=== PATIENT | female | born 1985 | race Caucasian/White ===

== ENCOUNTER 2016-10-27 14:02 | Inpatient (IN) | payer OTHER ==
[2016-10-27 14:19] VITALS: BMI 24.7
--- NOTE | 2016-10-27 15:18 | HP ---
COWS - Scale Resting Pulse: 1= ID [id number] Sweatin=Flushed/Facial Moisture Restless Observation: 1= Difficult to Sit Still Pupil Size: 0= Normal to Room Light Bone or Joint Aches: 2= Severe Diffuse Aches Runny Nose/ Eye Tearin= Runny Nose/Eyes GI Upset > 30mins: 2= Nausea/Diarrhea Tremor Observation: 2= Slight Tremor Visible Yawning Observation: 1= 1-2x During Session Anxiety or Irritability: 2=Irritable/Anxious Goose Flesh Skin: 3=Piloerection COWS Score: 18 Admission ROS S - HPI Chief Complaint: "I want to get off drugs because of my family and because I cannot keep doing this." Pt. is here to Detox from Heroin. Allergies/Adverse Reactions: Allergies Allergy/AdvReac Type Severity Reaction Status Date / Time No Known Allergies Allergy Verified 10/27/16 14:54 History of Present Illness: Pt. is a 31 YO female here to Detox from Percocet and Oxycodone. Patient initially prescribed Tramadol by MD for back pain presumably caused by Gastric Sleeve placement for weight loss in 2015. However, patient found the Tramadol to be relatively ineffective and began purchasing Percocet and Oxycodone from the street. Prio to this admission, she reports that she was taking 100 - 150 mg of Oxycodone per week. This is pt.'s first detox admission. Exam Limitations: No Limitations - Ebola screening Have you traveled outside of the country in the last 21 days: No Have you had contact with anyone from an Ebola affected area: No Have you been sick,other than usual withdrawal symptoms: No Do you have a fever: No - Review of Systems Constitutional: Chills, Diaphoresis, Fever, Loss of Appetite, Malaise, Night Sweats, Changes in sleep, Unintentional Wgt. Loss (Lost approx. 20 lbs over the last 1 month.) EENT: reports: Tearing, Nose Congestion, Sinus Pressure Respiratory: reports: Shortness of Breath (Occasional.) Cardiac: reports: Palpitations GI: reports: Diarrhea, Nausea, Poor Appetite, Vomiting : reports: No Symptoms Reported Musculoskeletal: reports: Back Pain, Joint Pain, Joint Stiffness Integumentary: reports: No Symptoms Reported Neuro: reports: Headache (Occasional.), Tingling (Bilateral legs.), Tremors Endocrine: reports: No Symptoms Reported Hematology: reports: No Symptoms Reported Psychiatric: reports: No Sypmtoms Reported, Judgement Intact, Mood/Affect Appropiate, Orientated x3, Anxious, Depressed (No previous medication / treatment.) Other Systems: Reviewed and Negative Patient History - Patient Medical History Hx Anemia: No Hx Asthma: No Hx Chronic Obstructive Pulmonary Disease (COPD): No Hx Cancer: No Hx Cardiac Disorders: No Hx Congestive Heart Failure: No Hx Hypertension: No Hx Hypercholesterolemia: No Hx Pacemaker: No HX Cerebrovascular Accident: No Hx Seizures: No Hx Dementia: No Hx Diabetes: No Hx Gastrointestinal Disorders: No Hx Liver Disease: No Hx Genitourinary Disorders: No Hx Sexually Transmitted Disorders: No Hx Renal Disease (ESRD): No Hx Thyroid Disease: No Hx Human Immunodeficiency Virus (HIV): No (Last Tested approx. 1 year ago: NEGATIVE.) Hx Hepatitis C: No (Does not recall if she has ever been tested.) Hx Depression: No (No treatment.) Hx Suicide Attempt: No (PATIENT DENEIS CURRENT SI / HI.) Hx Bipolar Disorder: No Hx Schizophrenia: No Other Medical History: DENIES. - Patient Surgical History Past Surgical History: Yes Hx Neurologic Surgery: No Hx Cataract Extraction: No Hx Cardiac Surgery: No Hx Lung Surgery: No Hx Breast Surgery: No Hx Breast Biopsy: No Hx Abdominal Surgery: Yes (gastric sleeve in 2014) Hx Appendectomy: No Hx Cholecystectomy: Yes (in 2011) Hx Genitourinary Surgery: No Hx Section: No Hx Orthopedic Surgery: No Hx Hysterectomy: No Other Surgical History: DENIES. Anesthesia Reaction: No - PPD History Previous Implant?: Yes Documented Results: Positive w/o proof Implanted On Prior R Admission?: No PPD to be Administered?: No - Reproductive History Patient is a Female of Child Bearing Age (11 -55 yrs old): Yes Last Menstrual Period: 09/26/16 Patient : No - Smoking Cessation Smoking history: Former smoker Have you smoked in the past 12 months: Yes Aproximately how many cigarettes per day: 1 Cigars Per Day: 0 Hx Chewing Tobacco Use: No Initiated information on smoking cessation: Yes 'Breaking Loose' booklet given: 10/27/16 - Substance & Tx. History Hx Alcohol Use: No Hx Substance Use: Yes Substance Use Type: Opiates Hx Substance Use Treatment: No - Substances Abused Percocet Route: Oral Frequency: Daily Amount used: 100-150 mg. Age of first use: 30 Date of Last Use: 10/26/16 Family Disease History - Family Disease History Family Disease History: [place]: Mother (Bone Marrow, .) Admission Physical Exam [facility] - Vital Signs Vital Signs: Vital Signs - 24 hr 10/27/16 14:12 Temperature 97.8 F Pulse Rate 93 H Respiratory 20 Rate Blood Pressure 147/82 - Physical General Appearance: Yes: Nourished, Appropriately Dressed, Moderate Distress, Tremorous, Sweating, Anxious HEENTM: Yes: Hearing grossly Normal, Normocephalic, Normal Voice, ERIKA, Pharynx Normal Respiratory: Yes: Chest Non-Tender, Lungs Clear, No Respiratory Distress, No Accessory Muscle Use Neck: Yes: No masses,lesions,Nodules, Supple, Trachea in good position Breast: Yes: Breast Exam Deferred Cardiology: Yes: Regular Rhythm, Regular Rate, S1, S2 Abdominal: Yes: Normal Bowel Sounds, Non Tender, Flat, Soft Genitourinary: Yes: Within Normal Limits Back: Yes: Decreased Range of Motion Musculoskeletal: Yes: Gait Steady, Back pain, Joint Stiffness Extremities: Yes: Normal Capillary Refill, Tremors Neurological: Yes: Fully Oriented, Alert, Normal Mood/Affect, Normal Response Integumentary: Yes: Normal Color, Warm, Diaphoresis Lymphatic: Yes: Within Normal Limits - Diagnostic (1) Opioid dependence with withdrawal Current Visit: Yes Status: Acute (2) Nicotine dependence Current Visit: Yes Status: Chronic Qualifiers: Nicotine product type: cigarettes Substance use status: uncomplicated Qualified Code(s): F17.210 - Nicotine dependence, cigarettes, uncomplicated (3) Depression (emotion) Current Visit: Yes Status: Chronic Qualifiers: Depression Type: unspecified Qualified Code(s): F32.9 - Major depressive disorder, single episode, unspecified (4) Hx of laparoscopic gastric banding Current Visit: Yes Status: Chronic (5) Back pain Current Visit: Yes Status: Chronic Qualifiers: Back pain location: low back pain Chronicity: chronic Back pain laterality: bilateral Sciatica presence: without sciatica Qualified Code(s): M54.5 - Low back pain; G89.29 - Other chronic pain Cleared for Admission [facility] - Detox or Rehab [facility] Level of Care: Medically Managed Detox Regimen/Protocol: Methadone BHS Breath Alcohol Content Breath Alcohol Content: 0 Urine Pregancy Test - Result Urine Test Results: Negative- NO Line Present Urine Drug Screen - Results Drug Screen Negative: No Urine Drug Screen Results: TCA-Tricyclic Antidepress, OXY-Oxycodone
[2016-10-27] MEDS ORDERED: METHADONE HCL 10 MG TABLET (FOR DETOX USE ONLY) PO ONE ×2 (15:53→23:00)
[2016-10-27] MEDS ORDERED: MAG HYDROX/AL HYDROX/SIMETH 30 ML UNIT-DOSE CUP PO PRN (15:53)
[2016-10-27] MEDS ORDERED: LOPERAMIDE HCL 2 MG CAPSULE PO PRN (15:53)
[2016-10-27] MEDS ORDERED: MAGNESIUM CITRATE 300 ML BOTTLE PO PRN (15:53)
[2016-10-27] MEDS ORDERED: P-EPHED 60MG/TRIPROLIDI 2.5MG TABLET PO PRN (15:53)
[2016-10-27] MEDS ORDERED: MENTHOL/PHENOL 1 EACH UD MM PRN (15:53)
[2016-10-27] MEDS ORDERED: ACETAMINOPHEN 325 MG TABLET (FP) PO PRN (15:53)
[2016-10-27] MEDS ORDERED: MAGNESIUM HYDROX 2400MG/30ML ORAL SUSPENSION 30 ML CUP PO PRN (15:53)
[2016-10-27] MEDS ORDERED: guaiFENesin/D-METHORPHAN HB 10 ML UNIT-DOSE CUPS PO PRN (15:53)
[2016-10-27] MEDS: diazePAM 5 MG TABLET PO PRN (17:36)
[2016-10-27] MEDS: THIAMINE HCL 100 MG TABLET (FP) PO SCH (22:21)
[2016-10-27 22:22] LABS: URINE APPEARANCE CLEAR; URINE BILIRUBIN NEGATIVE (NEGATIVE); URINE BLOOD NEGATIVE (NEGATIVE); URINE COLOR YELLOW; URINE GLUCOSE (UA) NEGATIVE (NEGATIVE); URINE KETONE 1+ (NEGATIVE); URINE LEUK ESTERASE NEGATIVE (NEGATIVE); URINE NITRITE NEGATIVE (NEGATIVE); URINE PROTEIN NEGATIVE (NEGATIVE); URINE UROBILINOGEN NEGATIVE mg/dL (0.2-1.0)
[2016-10-27] MEDS: diphenhydrAMINE HCL 50 MG CAPSULE PO PRN (23:15)
[2016-10-28] MEDS: diphenhydrAMINE HCL 50 MG CAPSULE PO PRN (00:27)
[2016-10-28] MEDS: diazePAM 5 MG TABLET PO PRN ×5 (00:27→20:54)
--- NOTE | 2016-10-28 08:55 | CONSULT ---
[facility] Psychiatric Consult - Data Date of interview: 10/28/16 Admission source: [facility] Identifying data: Comso is 31 years opld female with no psychiatric hospitalization history iontoxicated with Opioids an Nicotine Substance Abuse History: - Smoking Cessation. Smoking history: Former smoker. Have you smoked in the past 12 months: Yes. Aproximately how many cigarettes per day: 1. Cigars Per Day: 0. Hx Chewing Tobacco Use: No. Initiated information on smoking cessation: Yes. 'Breaking Loose' booklet given: . - Substance & Tx. History. Hx Alcohol Use: No. Hx Substance Use: Yes. Substance Use Type: Opiates. Hx Substance Use Treatment: No. - Substances Abused. Percocet. Route: Oral. Frequency: Daily. Amount used: 100-150 mg. Age of first use: 30. Date of Last Use: 10/26/16 Medical History: LBP, Gastric Bypass m history on 2014 , lost 120 LBS, Psychiatric History: Patient reports history of depression and anxiety, insomnia , reprots good response on Trazodone 50mg po qhs Physical/Sexual Abuse/Trauma History: Denies Additional Comment: Trazodone 50mg po qhs Mental Status Exam - Mental Status Exam Alert and Oriented to: Person Cognitive Function: Fair Patient Appearance: Unkempt Mood: Sad Affect: Mood Congruent Patient Behavior: Cooperative Speech Pattern: Delayed Voice Loudness: Mildly Soft/Quiet Thought Process: Goal Oriented Thought Disorder: Being Controlled Hallucinations: Denies Suicidal Ideation: Denies Homicidal Ideation: Denies Insight/Judgement: Fair Sleep: Difficulty falling asleep Appetite: Weight gain Muscle strength/Tone: Mild Hypotonicity Gait/Station: Normal Additional Comments: Trazodone 50mg po qhs Psychiatric Findings - Problem List ([place] 1, 2,3) (1) Opioid dependence with withdrawal Current Visit: Yes Status: Acute (2) Nicotine dependence Current Visit: Yes Status: Chronic Qualifiers: Nicotine product type: cigarettes Substance use status: uncomplicated Qualified Code(s): F17.210 - Nicotine dependence, cigarettes, uncomplicated (3) Drug-induced mood disorder Current Visit: Yes Status: Acute - Initial Treatment Plan Initial Treatment Plan: Trazodone 50mg po qhs
[2016-10-28 09:56] LABS: MCHC 32.8 g/dl (32.0-36.0); MEAN CELL VOLUME 82.3 fl (80-96); MEAN PLT VOLUME 9.7 fl (7.5-11.1); PLATELET COUNT 214 K/MM3 (134-434); RDW 15.7 % (11.6-15.6); WHITE BLOOD COUNT 6.7 K/mm3 (4.0-10.0)
[2016-10-28] MEDS ORDERED: METHADONE HCL 10 MG TABLET (FOR DETOX USE ONLY) PO ONE (10:00)
[2016-10-28] MEDS: PRENATAL VITAMINS W/ FOLIC ACID TABLET (FP) PO SCH (10:34)
--- NOTE | 2016-10-28 10:35 | PN ---
BHS COWS - Scale Resting Pulse: 1= [place] 81-100 Sweatin=Flushed/Facial Moisture Restless Observation: 1= Difficult to Sit Still Pupil Size: 0= Normal to Room Light Bone or Joint Aches: 2= Severe Diffuse Aches Runny Nose/ Eye Tearin= None GI Upset > 30mins: 2= Nausea/Diarrhea Tremor Observation of Outstretched Hands: 2= Slight Tremor Visible Yawning Observation: 2= >3x During Session Anxiety or Irritability: 2=Irritable/Anxious Goose Flesh Skin: 3=Piloerection COWS Score: 17 BHS Progress Note (SOAP) Subjective: shakes sweats interrupted sleep body aches Objective: 10/28/16 10:44 Vital Signs Temperature 98.1 F 10/28/16 10:39 Pulse Rate 97 H 10/28/16 10:39 Respiratory Rate 18 10/28/16 10:39 Blood Pressure 117/68 10/28/16 10:39 O2 Sat by Pulse Oximetry (%) Laboratory Tests 10/27/16 10/28/16 10/28/16 21:57 07:00 07:00 WBC 6.7 RBC 4.01 Hgb 10.8 Hct 33.0 MCV 82.3 MCH 27.0 MCHC 32.8 RDW 15.7 H Plt Count 214 MPV 9.7 Urine Color Yellow Urine Appearance Clear Urine pH 6.0 Ur Specific [place] 1.010 Urine Protein Negative Urine Glucose (UA) Negative Urine Ketones 1+ H Urine Blood Negative Urine Nitrite Negative Urine Bilirubin Negative Urine Urobilinogen Negative Ur Leukocyte Esterase Negative RPR Titer Nonreactive labs pending awake/alert ambulating no acute distress Assessment: 10/28/16 10:44 withdrawal sx Plan: continue detox increase fluids labs pending
--- NOTE | 2016-10-28 10:46 | EKG ---
Test Reason : Blood Pressure : / mmHG Vent. Rate : 087 BPM Atrial Rate : 087 BPM P-R Int : 128 ms QRS Dur : 074 ms QT Int : 360 ms P-R-T Axes : 054 042 061 degrees QTc Int : 433 ms NORMAL SINUS RHYTHM WITH SINUS ARRHYTHMIA NORMAL ECG NO PREVIOUS ECGS AVAILABLE Confirmed by JOANN DE LA TORRE, YOSVANY ([id number]) on 10/28/2016 10:45:43 AM Referred By: Luis Aguillon Confirmed By:YOSVANY DAVID MD
[2016-10-28 10:56] LABS: ALBUMIN 3.6 g/dl (3.4-5.0); ALK PHOS 50 U/L (45-117); ANION GAP 9 (8-16); BILIRUBIN,TOTAL 0.7 mg/dL (0.2-1.0); CALCIUM 8.9 mg/dL (8.5-10.1); CO2 27 mmol/L (21-32); CREATININE 0.6 mg/dL (0.55-1.02); GLUCOSE,RANDOM 110 mg/dL (74-106); SGOT/AST 6 U/L (15-37); SGPT/ALT 18 U/L (12-78); TOT PROT 6.2 g/dl (6.4-8.2)
[2016-10-28] MEDS: NICOTINE POLACRILEX 2 MG GUM BC PRN ×2 (12:07→20:55)
[2016-10-28 14:38] LABS: SICKLE CELL SCREEN NEGATIVE (NEGATIVE)
[2016-10-28] MEDS: THIAMINE HCL 100 MG TABLET (FP) PO SCH (22:22)
[2016-10-28] MEDS: traZODone HCL 50 MG TABLET (FP) PO SCH (22:22)
[2016-10-28] MEDS: CYCLOBENZAPRINE HCL 10 MG TABLET (FP) PO PRN (22:22)
[2016-10-29] MEDS: IBUPROFEN 400 MG TABLET (FP) PO PRN ×2 (03:04→14:04)
[2016-10-29] MEDS: diazePAM 5 MG TABLET PO PRN ×4 (03:05→22:22)
[2016-10-29] MEDS: CYCLOBENZAPRINE HCL 10 MG TABLET (FP) PO PRN (07:00)
--- NOTE | 2016-10-29 09:39 | PN ---
Psychiatric Progress Note Vital Signs: Vital Signs Period Temp Pulse Resp BP Sys/Larson Pulse Ox Last 24 Hr 96.6 F-98.2 F 68-105 18-108 92-121/50-73 Date of Session: 10/29/16 Chief Complaint:: Depression HPI: Patient approached MD at the [facility] and expressed desire to restart Lexapro 10mg po qd she angelina been takinf in nthe past with good response Current Medications: Active Medications Generic Name Dose Route Start Last Admin Trade Name Freq PRN Reason Stop Dose Admin Acetaminophen 650 mg 10/27/16 15:53 Tylenol - PO Q4H PRN FEVER OR PAIN Al Hydroxide/Mg Hydroxide 30 ml 10/27/16 15:53 Mylanta Oral Suspension - PO Q6H PRN DYSPEPSIA Cyclobenzaprine HCl 10 mg 10/27/16 15:57 10/29/16 07:00 Flexeril - PO 10 mg TID PRN Administration MUSCLE SPASMS Diazepam 10 mg 10/27/16 15:53 10/29/16 07:00 Valium - PO 10/30/16 15:52 10 mg Q4H PRN Administration WITHDRAWAL(CONT SUBST) Diphenhydramine HCl 50 mg 10/27/16 15:53 10/28/16 00:27 Benadryl - PO 50 mg HSMR1 PRN Administration INSOMNIA Escitalopram Oxalate 10 mg 10/29/16 10:00 Lexapro - PO DAILY LULA Eucalyptus/Menthol/Phenol/Sorbitol 1 each 10/27/16 15:53 Cepastat Lozenge - MM Q4H PRN SORE THROAT Guaifenesin 10 ml 10/27/16 15:53 Robitussin Dm - PO Q6H PRN COUGH Hydroxyzine Pamoate 50 mg 10/27/16 15:53 Vistaril - PO Q4H PRN AGITATION Ibuprofen 400 mg 10/27/16 15:53 10/29/16 03:04 Motrin - PO 400 mg Q6H PRN Administration SEVERE PAIN Loperamide HCl 4 mg 10/27/16 15:53 Imodium - PO Q6H PRN DIARRHEA Magnesium Citrate 300 ml 10/27/16 15:53 Citroma - PO Q48H PRN CONSTIPATION Magnesium Hydroxide 30 ml 10/27/16 15:53 Milk Of Magnesia - PO DAILY PRN CONSTIPATION Methadone HCl 10 mg 10/31/16 10:00 Dolophine - PO 10/31/16 10:01 ONCE ONE Methadone HCl 15 mg 10/29/16 10:00 Dolophine - PO 10/29/16 10:01 ONCE ONE Methadone HCl 15 mg 10/30/16 10:00 Dolophine - PO 10/30/16 10:01 ONCE ONE Methadone HCl 5 mg 11/01/16 06:00 Dolophine - PO 11/01/16 06:01 ONCE@0600 ONE Nicotine Polacrilex 2 mg 10/27/16 15:53 10/28/16 20:55 Nicorette Gum - BC 2 mg Q2H PRN Administration NICOTINE REPLACEMENT RX Multivit/Folic Acid/Iron 1 tab 10/28/16 10:00 10/28/16 10:34 Vitamins (Sjr) - PO 1 tab DAILY LULA Administration Pseudoephedrine/Triprolidine 1 combo 10/27/16 15:53 Actifed - PO TID PRN NASAL CONGESTION Thiamine HCl 100 mg 10/27/16 22:00 10/28/16 22:22 Vitamin B1 - PO 100 mg HS LULA Administration Trazodone HCl 50 mg 10/28/16 22:00 10/28/16 22:22 Desyrel - PO 50 mg HS LULA Administration Medication(s) Change(s): Lexapro 10mg po qd Mental Status Exam - Mental Status Exam Alert and Oriented to: Place, Person Cognitive Function: Fair Patient Appearance: Unkempt Mood: Anxious Affect: Mood Congruent Patient Behavior: Cooperative Speech Pattern: Delayed Voice Loudness: Mildly Soft/Quiet Thought Process: Goal Oriented Thought Disorder: Being Controlled Hallucinations: Denies Suicidal Ideation: Denies Homicidal Ideation: Denies Insight/Judgement: Fair Sleep: Difficulty falling asleep Appetite: Weight gain Muscle strength/Tone: Normal Gait/Station: Normal Additional Comments: Lexapro 10mg po qd Psychiatric Treatment Plan - Problem List (1) Opioid dependence with withdrawal Current Visit: Yes (2) Nicotine dependence Current Visit: Yes Qualifiers: Nicotine product type: cigarettes Substance use status: uncomplicated Qualified Code(s): F17.210 - Nicotine dependence, cigarettes, uncomplicated (3) Drug-induced mood disorder Current Visit: Yes Initial treatment plan: Lexapro 10mg po qd
[2016-10-29] MEDS ORDERED: METHADONE HCL 5 MG TABLET (FOR DETOX USE ONLY) PO ONE (10:00)
[2016-10-29] MEDS: ESCITALOPRAM OXALATE 10 MG TABLET (FP) PO SCH (10:43)
[2016-10-29] MEDS: PRENATAL VITAMINS W/ FOLIC ACID TABLET (FP) PO SCH (10:43)
[2016-10-29] MEDS: NICOTINE POLACRILEX 2 MG GUM BC PRN ×2 (11:21→17:45)
--- NOTE | 2016-10-29 12:35 | PN ---
S COWS - Scale Resting Pulse: 2= [place] 101-120 Sweatin= Chills/Flushing Restless Observation: 1= Difficult to Sit Still Pupil Size: 1= Pupils >than Normal Bone or Joint Aches: 1= Mild Discomfort Runny Nose/ Eye Tearin= Nasal Congestion GI Upset > 30mins: 2= Nausea/Diarrhea Tremor Observation of Outstretched Hands: 1= Tremor [place], Not Seen Yawning Observation: 1= 1-2x During Session Anxiety or Irritability: 2=Irritable/Anxious Goose Flesh Skin: 3=Piloerection COWS Score: 16 S Progress Note (SOAP) Subjective: nausea, sweats, interrupted sleep, anxiety, tremors Objective: 10/29/16 12:34 Vital Signs - 24 hr 10/28/16 10/28/16 10/28/16 14:55 17:50 22:19 Temperature 98.2 F 97.2 F L 96.6 F L Pulse Rate 93 H 105 H 91 H Respiratory 108 H 18 18 Rate Blood Pressure 108/72 121/69 117/73 10/29/16 10/29/16 10/29/16 00:30 03:30 06:52 Temperature 96.8 F L Pulse Rate 68 Respiratory 18 18 18 Rate Blood Pressure 92/50 10/29/16 10:24 Temperature 97.9 F Pulse Rate 106 H Respiratory 18 Rate Blood Pressure 108/60 Laboratory Tests 10/27/16 10/27/16 10/28/16 07:00 21:57 07:00 WBC RBC Hgb Hct MCV MCH MCHC RDW Plt Count MPV Sickle Cell Screen Sodium 142 Potassium 4.1 Chloride 106 Carbon Dioxide 27 Anion Gap 9 BUN 14 Creatinine 0.6 Creat Clearance w eGFR > 60 Random Glucose 110 H Calcium 8.9 Total Bilirubin 0.7 AST 6 L ALT 18 Alkaline Phosphatase 50 Total Protein 6.2 L Albumin 3.6 Urine Color Yellow Urine Appearance Clear Urine pH 6.0 Ur Specific [place] 1.010 Urine Protein Negative Urine Glucose (UA) Negative Urine Ketones 1+ H Urine Blood Negative Urine Nitrite Negative Urine Bilirubin Negative Urine Urobilinogen Negative Ur Leukocyte Esterase Negative RPR Titer Hepatitis C Antibody <0.1 10/28/16 10/28/16 07:00 07:00 WBC 6.7 RBC 4.01 Hgb 10.8 Hct 33.0 MCV 82.3 MCH 27.0 MCHC 32.8 RDW 15.7 H Plt Count 214 MPV 9.7 Sickle Cell Screen Negative Sodium Potassium Chloride Carbon Dioxide Anion Gap BUN Creatinine Creat Clearance w eGFR Random Glucose Calcium Total Bilirubin AST ALT Alkaline Phosphatase Total Protein Albumin Urine Color Urine Appearance Urine pH Ur Specific [place] Urine Protein Urine Glucose (UA) Urine Ketones Urine Blood Urine Nitrite Urine Bilirubin Urine Urobilinogen Ur Leukocyte Esterase RPR Titer Nonreactive Hepatitis C Antibody Assessment: 10/29/16 12:35 withdrawal sx Plan: cont detox
[2016-10-29] MEDS: THIAMINE HCL 100 MG TABLET (FP) PO SCH (22:19)
[2016-10-29] MEDS: traZODone HCL 50 MG TABLET (FP) PO SCH (22:19)
[2016-10-30] MEDS: diazePAM 5 MG TABLET PO PRN ×2 (05:39→10:54)
[2016-10-30] MEDS: IBUPROFEN 400 MG TABLET (FP) PO PRN (08:54)
[2016-10-30] MEDS: CYCLOBENZAPRINE HCL 10 MG TABLET (FP) PO PRN (08:55)
--- NOTE | 2016-10-30 09:59 | PN ---
BHS Progress Note (SOAP) Subjective: nausea, sweats, interrupetd sleep, anxiety, tremors Objective: 10/30/16 09:58 Vital Signs - 8 hr 10/30/16 10/30/16 03:30 06:57 Temperature 97.7 F Pulse Rate 85 Respiratory 18 18 Rate Blood Pressure 102/68 Laboratory Tests 10/27/16 10/27/16 10/28/16 07:00 21:57 07:00 WBC RBC Hgb Hct MCV MCH MCHC RDW Plt Count MPV Sickle Cell Screen Sodium 142 Potassium 4.1 Chloride 106 Carbon Dioxide 27 Anion Gap 9 BUN 14 Creatinine 0.6 Creat Clearance w eGFR > 60 Random Glucose 110 H Calcium 8.9 Total Bilirubin 0.7 AST 6 L ALT 18 Alkaline Phosphatase 50 Total Protein 6.2 L Albumin 3.6 Urine Color Yellow Urine Appearance Clear Urine pH 6.0 Ur Specific [place] 1.010 Urine Protein Negative Urine Glucose (UA) Negative Urine Ketones 1+ H Urine Blood Negative Urine Nitrite Negative Urine Bilirubin Negative Urine Urobilinogen Negative Ur Leukocyte Esterase Negative RPR Titer Hepatitis C Antibody <0.1 10/28/16 10/28/16 07:00 07:00 WBC 6.7 RBC 4.01 Hgb 10.8 Hct 33.0 MCV 82.3 MCH 27.0 MCHC 32.8 RDW 15.7 H Plt Count 214 MPV 9.7 Sickle Cell Screen Negative Sodium Potassium Chloride Carbon Dioxide Anion Gap BUN Creatinine Creat Clearance w eGFR Random Glucose Calcium Total Bilirubin AST ALT Alkaline Phosphatase Total Protein Albumin Urine Color Urine Appearance Urine pH Ur Specific [place] Urine Protein Urine Glucose (UA) Urine Ketones Urine Blood Urine Nitrite Urine Bilirubin Urine Urobilinogen Ur Leukocyte Esterase RPR Titer Nonreactive Hepatitis C Antibody Assessment: 10/30/16 09:59 withdrawal sx Plan: cont detox
[2016-10-30] MEDS ORDERED: METHADONE HCL 5 MG TABLET (FOR DETOX USE ONLY) PO ONE (10:00)
[2016-10-30] MEDS: ESCITALOPRAM OXALATE 10 MG TABLET (FP) PO SCH (10:53)
[2016-10-30] MEDS: PRENATAL VITAMINS W/ FOLIC ACID TABLET (FP) PO SCH (10:53)
[2016-10-30] MEDS: NICOTINE POLACRILEX 2 MG GUM BC PRN (12:15)
[2016-10-30] MEDS: hydrOXYzine PAMOATE 50 MG CAPSULE (FP) PO PRN (17:29)
[2016-10-30] MEDS: THIAMINE HCL 100 MG TABLET (FP) PO SCH (22:15)
[2016-10-30] MEDS: traZODone HCL 50 MG TABLET (FP) PO SCH (22:15)
[2016-10-31] MEDS: hydrOXYzine PAMOATE 50 MG CAPSULE (FP) PO PRN ×2 (06:18→22:47)
[2016-10-31] MEDS: CYCLOBENZAPRINE HCL 10 MG TABLET (FP) PO PRN ×2 (06:18→22:47)
[2016-10-31] MEDS ORDERED: METHADONE HCL 10 MG TABLET (FOR DETOX USE ONLY) PO ONE (10:00)
[2016-10-31] MEDS: PRENATAL VITAMINS W/ FOLIC ACID TABLET (FP) PO SCH (10:52)
[2016-10-31] MEDS: ESCITALOPRAM OXALATE 10 MG TABLET (FP) PO SCH (10:52)
[2016-10-31] MEDS: NICOTINE POLACRILEX 2 MG GUM BC PRN ×2 (15:34→19:30)
--- NOTE | 2016-10-31 19:41 | PN ---
BHS Progress Note (SOAP) Subjective: interrupted sleep, generalized aches Objective: 10/31/16 19:40 Vital Signs - 8 hr 10/31/16 10/31/16 15:01 19:23 Temperature 98.1 F 97.7 F Pulse Rate 92 H 81 Respiratory 18 18 Rate Blood Pressure 98/52 102/64 Laboratory Last Values WBC 6.7 K/mm3 (4.0-10.0) 10/28/16 07:00 RBC 4.01 M/mm3 (3.60-5.2) 10/28/16 07:00 Hgb 10.8 GM/dL (10.7-15.3) 10/28/16 07:00 Hct 33.0 % (32.4-45.2) 10/28/16 07:00 MCV 82.3 fl (80-96) 10/28/16 07:00 MCH 27.0 pg (25.7-33.7) 10/28/16 07:00 MCHC 32.8 g/dl (32.0-36.0) 10/28/16 07:00 RDW 15.7 % (11.6-15.6) H 10/28/16 07:00 Plt Count 214 K/MM3 (134-434) 10/28/16 07:00 MPV 9.7 fl (7.5-11.1) 10/28/16 07:00 Sickle Cell Screen Negative (NEGATIVE) 10/28/16 07:00 Sodium 142 mmol/L (136-145) 10/28/16 07:00 Potassium 4.1 mmol/L (3.5-5.1) 10/28/16 07:00 Chloride 106 mmol/L (98-107) 10/28/16 07:00 Carbon Dioxide 27 mmol/L (21-32) 10/28/16 07:00 Anion Gap 9 (8-16) 10/28/16 07:00 BUN 14 mg/dL (7-18) 10/28/16 07:00 Creatinine 0.6 mg/dL (0.55-1.02) 10/28/16 07:00 Creat Clearance w eGFR > 60 (>60) 10/28/16 07:00 Random Glucose 110 mg/dL (74-106) H 10/28/16 07:00 Calcium 8.9 mg/dL (8.5-10.1) 10/28/16 07:00 Total Bilirubin 0.7 mg/dL (0.2-1.0) 10/28/16 07:00 AST 6 U/L (15-37) L 10/28/16 07:00 ALT 18 U/L (12-78) 10/28/16 07:00 Alkaline Phosphatase 50 U/L (45-117) 10/28/16 07:00 Total Protein 6.2 g/dl (6.4-8.2) L 10/28/16 07:00 Albumin 3.6 g/dl (3.4-5.0) 10/28/16 07:00 Urine Color Yellow 10/27/16 21:57 Urine Appearance Clear 10/27/16 21:57 Urine pH 6.0 (5.0-8.0) 10/27/16 21:57 Ur Specific [place] 1.010 (1.005-1.025) 10/27/16 21:57 Urine Protein Negative (NEGATIVE) 10/27/16 21:57 Urine Glucose (UA) Negative (NEGATIVE) 10/27/16 21:57 Urine Ketones 1+ (NEGATIVE) H 10/27/16 21:57 Urine Blood Negative (NEGATIVE) 10/27/16 21:57 Urine Nitrite Negative (NEGATIVE) 10/27/16 21:57 Urine Bilirubin Negative (NEGATIVE) 10/27/16 21:57 Urine Urobilinogen Negative mg/dL (0.2-1.0) 10/27/16 21:57 Ur Leukocyte Esterase Negative (NEGATIVE) 10/27/16 21:57 RPR Titer Nonreactive (NONREACTIVE) 10/28/16 07:00 Hepatitis C Antibody <0.1 s/co ratio (0.0-0.9) 10/27/16 07:00 labs noted Assessment: 10/31/16 19:40 withdrawal sx Plan: continue detox
[2016-10-31] MEDS: THIAMINE HCL 100 MG TABLET (FP) PO SCH (22:47)
[2016-10-31] MEDS: traZODone HCL 50 MG TABLET (FP) PO SCH (22:47)
[2016-11-01] MEDS ORDERED: METHADONE HCL 5 MG TABLET (FOR DETOX USE ONLY) PO ONE (06:00)
[2016-11-01] MEDS: NICOTINE POLACRILEX 2 MG GUM BC PRN (06:31)
[2016-11-01 06:48] VITALS: BP 98/52; PULSE 75; TEMP 97.9
== END 2016-11-01 09:46 | disposition home or self-care (01) | DRG 897 ==
LOC: YASAS 14:02 → Y6N 16:19
PROVIDERS: ADMIT Internal Medicine Addiction Medicine; ATTEND Internal Medicine Addiction Medicine
PROC: HZ2ZZZZ Detoxification Services for Substance Abuse Treatment (ICD-10-PCS; principal; 2016-10-27)
DX: F11.23 Opioid dependence with withdrawal (principal); F17.210 Nicotine dependence, cigarettes, uncomplicated; F19.24 Other psychoactive substance dependence with psychoactive substance-induced mood disorder; F32.9 Major depressive disorder, single episode, unspecified; M54.5 Low back pain; G89.29 Other chronic pain; Z98.84 Bariatric surgery status
CPT/HCPCS: 36415; 71020-TC; 80053; 81003; 85027; 85660; 86593; 86803; 93005; 93010

== ENCOUNTER 2016-11-28 18:43 | Emergency (ER) | payer OTHER ==
[2016-11-28 18:47] VITALS: TEMP 99; BMI 25.0
--- NOTE | 2016-11-28 19:19 | PDOC ---
History of Present Illness - General Chief Complaint: Vomiting/Diarrhea Stated Complaint: DETOX, WITHDRAWAL SYMPTOMS Time Seen by Provider: 11/28/16 19:19 - History of Present Illness Initial Comments: 11/28/16 19:52 Ms. Sanches is a 31 yo female with a significant past medical history of heroin abuse who presents to the emergency department complaining of withdrawal symptoms consisting of nausea, diarrhea, and tremor for the last 2 days. She says that she had presented for detox on the 27 of October and stayed until the for methadone treatment. 2 weeks later she had these similar symptoms and received suboxone from her PCP; she ran out of this a week ago. The patient denies chest pain, shortness of breath, headache and dizziness. Denies fever, chills, vomit, and constipation. Denies dysuria, frequency, urgency and hematuria. Allergies: NKDA Past surgical history: cholecystectomy and gastric sleeve Social history: heroin abuse PMD - [facility] Past History - Past Medical History Allergies/Adverse Reactions: Allergies Allergy/AdvReac Type Severity Reaction Status Date / Time No Known Allergies Allergy Verified 11/28/16 18:47 Home Medications: Ambulatory Orders Trazodone HCl [Desyrel -] 50 mg PO HS #30 tablet 10/28/16 Escitalopram Oxalate [Lexapro -] 10 mg PO DAILY #30 tablet 10/29/16 Ondansetron HCl [Zofran] 4 mg PO PRN PRN #16 tablet 11/28/16 Trazodone HCl 50 mg PO DAILY #4 tablet 11/28/16 Anemia: No Asthma: No Cancer: No Cardiac Disorders: No CVA: No COPD: No CHF: No Dementia: No Diabetes: No GI Disorders: No Disorders: No HTN: No Hypercholesterolemia: No Kidney Stones: No Liver Disease: No Seizures: No Thyroid Disease: No - Surgical History Abdominal Surgery: Yes (gastric sleeve in 2014) Appendectomy: No Cardiac Surgery: No Cholecystectomy: Yes (in 2011) Lung Surgery: No Neurologic Surgery: No Orthopedic Surgery: No - Reproductive History PID: No - Suicide/Smoking/Psychosocial Hx Smoking History: Current every day smoker Have you smoked in the past 12 months: Yes Number of Cigarettes Smoked Daily: 1 Cigars Per Day: 0 Information on smoking cessation initiated: Yes 'Breaking Loose' booklet given: 11/28/16 Hx Alcohol Use: No Drug/Substance Use Hx: Yes (opoids) Substance Use Type: Opiates Hx Substance Use Treatment: No *Physical Exam - Vital Signs Last Vital Signs Temp Pulse Resp BP Pulse Ox 99 F 115 H 19 134/87 100 11/28/16 18:45 11/28/16 18:45 11/28/16 18:45 11/28/16 18:45 11/28/16 18:45 ED Treatment Course - LABORATORY CBC & Chemistry Diagram: 11/28/16 20:06 11/28/16 20:06 Medical Decision Making - Medical Decision Making 11/28/16 21:56 Patient presents reporting acute withdrawal after running out of her suboxone medication. After speaking with [facility] regarding admission, patient is not eligible as was given 2 week suboxone prescription through wednesday with visit scheduled with provider on Wednesday. Patient given 1L NS and zofran with some resolution of symptoms as well as .1mg clonadine. Patient improved on repeat exam - not acutely withdrawing (mild withdrawal without indication for admission) and able to tolerate PO challenge. Given prescription for Zofran and trazodone to last until appointment on Wednesday. Will discharge to home care. *DC/Admit/Observation/Transfer Diagnosis at time of Disposition: Opioid dependence with withdrawal - Discharge Dispostion Disposition: HOME - Prescriptions Prescriptions: Trazodone HCl 50 mg PO DAILY #4 tablet Ondansetron HCl [Zofran] 4 mg PO PRN PRN #16 tablet PRN Reason: Nausea - Patient Instructions Printed Discharge Instructions: DI for Drug Withdrawal
[2016-11-28] MEDS ORDERED: SODIUM CHLORIDE 1,000 ML IV STA (19:50)
[2016-11-28] MEDS ORDERED: ONDANSETRON 4 MG/2 ML VIAL IVPUSH ONE (19:50)
[2016-11-28] MEDS ORDERED: ONDANSETRON 4 MG/2 ML VIAL ONE (19:56)
[2016-11-28 20:20] LABS: BASOPHIL 0.6 % (0-2.0); EOSINOPHIL 0.2 % (0-4.5); MCH 26.7 pg (25.7-33.7); MCHC 32.6 g/dl (32.0-36.0); MEAN CELL VOLUME 81.9 fl (80-96); MEAN PLT VOLUME 9.8 fl (7.5-11.1); NEUTROPHILS 67.3 % (42.8-82.8); PLATELET COUNT 233 K/MM3 (134-434); RDW 15.1 % (11.6-15.6); URINE APPEARANCE SLCLOUDY; URINE BILIRUBIN NEGATIVE (NEGATIVE); URINE BLOOD NEGATIVE (NEGATIVE); URINE COLOR YELLOW; URINE GLUCOSE (UA) NEGATIVE (NEGATIVE); URINE KETONE 1+ (NEGATIVE); URINE NITRITE NEGATIVE (NEGATIVE); URINE PROTEIN NEGATIVE (NEGATIVE); URINE UROBILINOGEN NEGATIVE mg/dL (0.2-1.0); WHITE BLOOD COUNT 5.8 K/mm3 (4.0-10.0)
[2016-11-28 20:38] LABS: URINE MARIJUANA THC NEGATIVE ng/ml (CUTOFF=50)
[2016-11-28] MEDS ORDERED: cloNIDine HCL 0.1 MG TABLET PO ONE (20:44)
[2016-11-28] MEDS ORDERED: cloNIDine HCL 0.1 MG TABLET ONE (20:52)
[2016-11-28 21:01] LABS: ALBUMIN 3.9 g/dl (3.4-5.0); ALK PHOS 72 U/L (45-117); ANION GAP 7 (8-16); BILIRUBIN,TOTAL 0.5 mg/dL (0.2-1.0); CALCIUM 8.9 mg/dL (8.5-10.1); CO2 27 mmol/L (21-32); CREATININE 0.5 mg/dL (0.55-1.02); GLUCOSE,RANDOM 85 mg/dL (74-106); SGOT/AST 14 U/L (15-37); SGPT/ALT 17 U/L (12-78); TOT PROT 7.1 g/dl (6.4-8.2)
[2016-11-28 21:41] VITALS: PULSE 85
[2016-11-28] MEDS ORDERED: traZODone HCL 50 MG TABLET (FP) PO ONE (21:48)
--- NOTE | 2016-11-28 21:49 | PDOC ---
*Physical Exam - Vital Signs Last Vital Signs Temp Pulse Resp BP Pulse Ox 99 F 85 20 134/87 100 11/28/16 18:45 11/28/16 21:41 11/28/16 21:41 11/28/16 18:45 11/28/16 21:41 - Physical Exam Comments: 11/28/16 21:48 The patient was examined by [YOSVANY ALEGRIA ] under my direct supervision. I personally evaluated the patient. I concur with the above findings and the plan of care. ED Treatment Course - LABORATORY CBC & Chemistry Diagram: 11/28/16 20:06 11/28/16 20:06 - ADDITIONAL ORDERS Additional order review: Laboratory Results 11/28/16 11/28/16 11/28/16 20:06 20:06 20:06 Sodium 139 Potassium 3.8 Chloride 105 Carbon Dioxide 27 Anion Gap 7 L BUN 7 D Creatinine 0.5 L Creat Clearance w eGFR > 60 Random Glucose 85 D Calcium 8.9 Total Bilirubin 0.5 D AST 14 L D ALT 17 Alkaline Phosphatase 72 D Total Protein 7.1 Albumin 3.9 Urine Color Yellow Urine Appearance Slcloudy Urine pH 6.0 Urine Protein Negative Urine Glucose (UA) Negative Urine Ketones 1+ H Urine Blood Negative Urine Nitrite Negative Urine Bilirubin Negative Urine Urobilinogen Negative Urine HCG, Qual Negative Opiates Screen Negative Methadone Screen Negative Barbiturate Screen Negative Phencyclidine Screen Negative Ur Amphetamines Screen Negative MDMA (Ecstasy) Screen Negative Benzodiazepines Screen Positive Cocaine Screen Negative U Marijuana (THC) Screen Negative 11/28/16 20:06 RBC 4.43 MCV 81.9 MCHC 32.6 RDW 15.1 MPV 9.8 Neutrophils % 67.3 Lymphocytes % 26.0 Monocytes % 5.9 Eosinophils % 0.2 Basophils % 0.6 - Medications Given in the ED: ED Medications Discontinued Medications Generic Name Dose Route Start Last Admin Trade Name Freq PRN Reason Stop Dose Admin Clonidine 0.1 mg 11/28/16 20:44 11/28/16 20:54 Catapres - PO 11/28/16 20:45 0.1 mg ONCE ONE Administration Sodium Chloride 1,000 mls @ 1,000 mls/hr 11/28/16 19:50 11/28/16 20:19 Normal Saline - IV 11/28/16 20:49 1,000 mls/hr ASDIR STA Administration Ondansetron HCl 4 mg 11/28/16 19:50 11/28/16 20:00 Zofran Injection IVPUSH 11/28/16 19:51 4 mg ONCE ONE Administration
[2016-11-28 22:04] LABS: URINE LEUK ESTERASE Negative (NEGATIVE)
[2016-11-28 22:25] VITALS: BP 122/80
--- NOTE | 2016-11-28 22:52 | PDOC ---
Attending Attestation - HPI HPI: 11/28/16 22:53 The patient is a 31 year old female, with a significant past medical history of heroin abuse, who presents to the emergency department complaining of withdrawal symptoms consisting of nausea, diarrhea, and body shakes for approximately 2 days. - Medical Decision Making 11/28/16 22:54 Documentation prepared by Phil Barreto, acting as medical file clerk for Roger Payne MD. <Phil Barreto - Last Filed: 11/28/16 22:53> - Resident Resident Name: [email or web address] - ED Attending Attestation I have performed the following: I have examined & evaluated the patient, The case was reviewed & discussed with the resident, I agree w/resident's findings & plan, Exceptions are as noted - Physicial Exam PE: 11/28/16 23:04 Patient is awake and alert, mildly tachycardic, in no distress; nc, atr perrla (3mm), eomi cta tachycardic, regular, no m/r/g sft, nt, nd, bs-nl no piloerection - Medical Decision Making 11/28/16 23:07 Patient is a well-appearing 31-year-old female who presents to the ER with mild opiate withdrawal symptoms after running out of Suboxone. Patient is minimally tachycardic with intermittent diarrhea without other overt signs and symptoms of opiate withdrawal. Patient is received IV fluids, antiemetics and H2 blockers as well as clonidine and trazodone. [facility] was contacted and informed us that the patient had a prescription for Suboxone that should've lasted her additional 3 days. I have discussed that with the patient and she appears to taking an additional dose of Suboxone previously. Patient will be discharged with scheduled follow-up for initiation of Suboxone therapy with her outpatient specialist. Will discharge with Zofran and trazodone. <Roger Payne - Last Filed: 11/28/16 23:09>
== END 2016-11-28 22:26 | disposition home or self-care (01) ==
LOC: JER 18:43
PROC: 3E033GC Introduction of Other Therapeutic Substance into Peripheral Vein, Percutaneous Approach (ICD-10-PCS; principal; 2016-11-28)
PROC: 3E0337Z Introduction of Electrolytic and Water Balance Substance into Peripheral Vein, Percutaneous Approach (ICD-10-PCS; 2016-11-28)
DX: F11.23 Opioid dependence with withdrawal (principal); F17.210 Nicotine dependence, cigarettes, uncomplicated; Z98.84 Bariatric surgery status
CPT/HCPCS: 36415; 80053; 80307; 81003; 84703; 85025; 99283-25